=== PATIENT | female | born 1990 | race Native Hawaiian/Other Pacific Islander ===

== ENCOUNTER 2024-06-11 10:03 | Inpatient (IN) | payer MEDICAID, SELFPAY ==
[2024-06-11] VITALS (128 sets, daily range): BP systolic 108–143; BP diastolic 56–82; PULSE 67–108; RESP 16–99; TEMP 36.6–37.3; O2SAT 90–100; BMI 34.4
[2024-06-11] MEDS: RINGERS LACTATED 1000 ML 1,000 ML 125 ML IV (10:40)
[2024-06-11 11:03] LABS: Basophils % (Auto) 0 % (0-2.5); Eosinophils # (Auto) 0.4 Thou/mm3 (0.0-0.5); Eosinophils % (Auto) 3 % (0-10); Hematocrit 34.3 % (36.0-46.0); Hemoglobin 11.7 g/dL (12.0-16.0); Immature Granulocytes % (Auto) 0 % (0-0); Immature Granulocytes Auto 0.05 Thou/mm3 (0.00-0.00); Lymphocytes # (Auto) 2.7 Thou/mm3 (1.0-4.8); Lymphocytes % (Auto) 20 % (10-50); Mean Corpuscular HGB Conc 34.1 g/dl (31.0-37.0); Mean Corpuscular Hemoglobin 27.7 pg (25.0-35.0); Mean Corpuscular Volume 81 fL (80-100); Monocytes # (Auto) 0.6 Thou/mm3 (0.0-0.8); Monocytes % (Auto) 4 % (0-12); Neutrophils # (Auto) 9.6 Thou/mm3 (1.8-7.7); Neutrophils % (Auto) 72 % (37-80); Nucleated Red Blood Cell % 0 /100 WBC (0); Platelet Count 244 Thou/mm3 (140-440); Red Blood Count 4.22 Miln/mm3 (4.00-5.20); White Blood Count 13.3 Thou/mm3 (3.6-11.0)
[2024-06-11 15:15] LABS: Syphilis Reactive (Nonreactive)
[2024-06-11 15:16] LABS: MHATP/TP-PA* See Sep Rpt
--- NOTE | 2024-06-11 15:16 | ESHP_ITS ---
Documentation for date of: 06/11/24 OB Labor/Induct. HPI History of Present Illness Chief complaint: painful regular ctx : 5 Para: 4 Term pregnancies: 4 pregnancies: 0 Living children: 4 History of Abortions: Spontaneous and Elective: 0 History of Vaginal deliveries: 4 History of sections: No History of : No Date of last menstrual period: 09/20/23 JACKELYN: 06/26/24 Gestational Age (weeks): 37 Gestational Age (days): 6 Gestational age based on last menstrual period: 37 History of present illness: Patient presents with regular/painful ctx. No LOF, no vaginal bleeding. Feels normal movement. Comments: G1: 08/31/12, 40wk 7lb0oz G2: 08/02/13, 40wk 6lb0oz G3: 12/31/14, 40wk 7lb0oz G4: 06/23/21, 40wk 6lb0oz History of Present Dating criteria: LMP confirmed by 2nd trimester US Adequate Care: No Obstetrical complications: other (RPR reactive titer 1:1, TP+. Treated with bicillin 03/06/24. Repeat RPR titer 1:1 on 06/05/24. Partner not yet treated, but endorses no sexual activity since her dx. AMA. Starting BMI 31. Insufficient PNC.) Labs Labs: Negative: Hepatitis B, HIV, Chlamydia, Gonorrhea and Group Beta Strep Review of Systems Review of Systems Narrative Review of Systems: Review of Systems Systems Reviewed: All systems reviewed, normal except as documented Constitutional Constitutional: Denies body ache(s), Denies chills, Denies fever(s) and Denies headache(s) ENT Ears, Nose, Mouth, and Throat: Denies headache(s) and Denies vertigo Cardiovascular Cardiovascular: Denies chest pain, Denies palpitations, Denies dyspnea and Denies syncope Respiratory Respiratory: Denies cough, Denies dyspnea Gastrointestinal Gastrointestinal: Denies nausea and Denies vomiting Neurologic Neurologic: Denies convulsions, Denies headache(s), Denies other visual disturbances, Denies syncope and Denies vertigo Past Medical History Surgical History SURGICAL: Negative Section OTHER SURGICAL HX: denies Social History SOCIAL: No tobacco, drug use or ETOH Past Medical History Comments PMH COMMENT: Starting BMI 31 Positive syphilis testing in , treated Meds Home Medications and Allergies Allergies Allergy/AdvReac Type Severity Reaction Status Date / Time No Known Allergies Allergy Verified 06/11/24 10:37 OB Exam Physical Exam Vital signs: Temp Pulse Resp BP Pulse Ox 99.1 F 84 18 108/56 L 99 06/11/24 10:09 06/11/24 14:53 06/11/24 10:07 06/11/24 14:53 06/11/24 15:12 Narrative: General: well developed, well nourished, no acute distress, conversant Cardiac: normal heart rate Lungs: breathing without distress Abdomen: soft, gravid, non-tender, no rebound or guarding Extremities: no pain with palpation of calves Detailed Labor and Delivery Exam Dilation (cm): 4 Effacement (%): 75 Cervix position: mid station: -2 Consistency: soft Presentation: Vertex Membranes: intact Baseline heart rate: 120 monitor accelerations: 15x15 monitor decelerations: Variable intermediate accountant variability: Moderate (11-25) Contraction frequency (min): q3-5min OB Results Labs 06/11/24 10:35 Labs: Short CBC 06/11/24 Range/Units 10:35 WBC 13.3 H (3.6-11.0) Thou/mm3 Hgb 11.7 L (12.0-16.0) g/dL Hct 34.3 L (36.0-46.0) % Plt Count 244 (140-440) Thou/mm3 OB Assessment & Plan Assessment and Plan (1) Active labor at term: Status: Acute Assessment and plan: Patient is a 33yo with SIUP at 37+6wk presenting in active labor. Regular/painful contractions, SCE: 75/-2, intact. Vitals wnl, benign exam. Reassuring assessment, Cat I-II for early vs variable decels. PMhx/ complicated by: -RPR reactive titer 1:1, TP+. Treated with bicillin 03/06/24. Repeat RPR titer 1:1 on 06/05/24. Partner not yet treated, but endorses no sexual activity since her dx. -AMA. -Starting BMI 31. -Insufficient PNC Plan: -Admit to L&D -Establish IV, routine labs to include syphilis testing -CEFM -Clear liquid diet -Medical Billing Specialist/consent re: -GBS status: negative -Anticipate -Safe to proceed (2) Syphilis affecting : Status: Acute (3) Advanced maternal age (AMA) in : Status: Acute (4) complicated by obesity: Status: Acute (5) Insufficient antepartum care: Status: Acute (2) Syphilis affecting Qualifiers: Trimester: third trimester Qualified Code(s): O98.113 - Syphilis complicating , third trimester (4) complicated by obesity Qualifiers: Trimester: third trimester Obesity type affecting : other obesity due to excess calories Qualified Code(s): O99.213 - Obesity complicating , third trimester; E66.09 - Other obesity due to excess calories
[2024-06-11] MEDS: METHYLERGONOVINE INJ 0.2 MG/ML VIAL IM (17:05)
[2024-06-11] MEDS: OXYTOCIN in NS 20 units 20 UNIT/1,000 ML BAG 125 UNIT IV (17:05)
[2024-06-11] MEDS: LIDOCAINE HCL 1% 20 ML VIAL INFL (17:11)
[2024-06-11] MEDS: MISOPROSTOL 200 mCg TABLET 800 MCG PR (17:16)
[2024-06-11] MEDS: BENZO/LANO/ALOE (Dermoplast) 60 GM CAN 1 SPRAY TOP (17:16)
--- NOTE | 2024-06-11 17:30 | PD.LDDELS ---
Data ([facility]) Data Hx Section: No Labs: Positive: RPR : 6 Para: 4 Term: 4 : 0 Livin : 0 Delivery Data ([facility]) Labor Data ROM Date: 06/11/24 ROM Time: 11:50 Rupture Type: SROM Amniotic Fluid: Clear Delivery Data Labor Onset Stage 1 Date: 06/11/24 Labor Onset Stage 1 Time: 10:17 Labor Onset Stage 2 Date: 06/11/24 Labor Onset Stage 2 Time: 16:57 Delivery Date: 06/11/24 Delivery Time: 17:00 Placenta Delivery Date: 06/11/24 Placenta Delivery Time: 17:10 Delivered by: Pinky Martinez Delivery nurse: Xenia Luna Other staff at delivery: Nursery Nurse Other staff at delivery: Teri Iniguez Delivery Method Delivery: Vaginal Delivery Type: Spontaneous Anesthesia Type Primary Anesthesia: None EBL Estimated blood loss (ml): 300 Umbilical Cord Nuchal Cord: x1 Additional Procedures Patient is a 33yo [id number] s/p uncomplicated at 37+6wk after presenting in active labor, delivering at 1700 on 06/11/2024. On presentation, SCE was 4cm. She progressed without pitocin augmentation to C/C/0 at which point she began pushing. She did not desire an epidural. With good maternal pushing efforts, infant's head delivered OA and restituted MANGO. Tight nuchal cord present, delivered through. Left anterior shoulder delivered easily followed by posterior shoulder and corpus. Nuchal cord reduced. Infant had spontaneous cry and was vigorous. Terminal meconium noted. Apgars 6/9. Infant placed on maternal abdomen where nose/mouth were suctioned and dried/stimulated. After approximately 1 minute, cord was clamped x2 and cut by patient's lamlep-cu-gph. Cord blood collected for typing. Uterus was deviated to the right, so in-and-out catheterization was performed with 300ml clear yellow urine emptied from bladder. With fundal massage and cord traction, placenta delivered spontaneously and intact with 3 vessel centrally inserted cord. Bimanual massage performed and IV pitocin given per protocol with fundus then firm at u-2cm and hemostasis noted. 0.2mg IM methergine also given. Inspection of perineum and vagina revealed a small 2nd degree midline perineal laceration which was repaired in routine fashion with 3-0 vicryl after anesthetizing with 1% lidocaine- total reapproximation and hemostasis achieved. 800mcg cytotec placed [place] for ppx against future bleeding. All counts correct x2. Mom and were doing well when I left the room. Pinky Martinez MD Complications Complications: none Data ([facility]) Data Infant Gender: Male Infant Weight Grams: 3590 1 Minute Total: 6 5 Minute Total: 9
[2024-06-11] MEDS: IBUPROFEN TAB 400 MG TABLET 800 MG PO (17:40)
[2024-06-11 18:41] LABS: Amphetamine/Metham Scrn,Ur OB Negative (Negative); Benzoylecgonine Screen, Ur OB Negative (Negative); Opiate Screen,Urine OB Negative (Negative); THC Screen,Urine OB Negative (Negative)
[2024-06-11] MEDS: DOCUSATE SOD 100 MG CAPSULE PO (23:00)
[2024-06-12 00:26] VITALS: BP 103/68; PULSE 70; RESP 20; TEMP 36.6; O2SAT 98
[2024-06-12] MEDS: IBUPROFEN TAB 400 MG TABLET 800 MG PO (00:57)
--- NOTE | 2024-06-12 03:25 | PC.NURSE ---
0026 Patient will be using her sister in law as her interpreter deaf, consent was signed. No [place] interpreters were available in this patients language at this time.
[2024-06-12 05:07] VITALS: BP 119/64; PULSE 72; RESP 24; TEMP 36.4; O2SAT 100
[2024-06-12 06:19] LABS: Basophils # (Auto) 0.1 Thou/mm3 (0.0-0.2); Basophils % (Auto) 0 % (0-2.5); Eosinophils # (Auto) 0.2 Thou/mm3 (0.0-0.5); Eosinophils % (Auto) 1 % (0-10); Hematocrit 31.4 % (36.0-46.0); Hemoglobin 10.7 g/dL (12.0-16.0); Immature Granulocytes % (Auto) 0 % (0-0); Immature Granulocytes Auto 0.08 Thou/mm3 (0.00-0.00); Lymphocytes # (Auto) 3.1 Thou/mm3 (1.0-4.8); Lymphocytes % (Auto) 17 % (10-50); Mean Corpuscular HGB Conc 34.1 g/dl (31.0-37.0); Mean Corpuscular Hemoglobin 28.5 pg (25.0-35.0); Mean Corpuscular Volume 84 fL (80-100); Monocytes # (Auto) 1.1 Thou/mm3 (0.0-0.8); Monocytes % (Auto) 6 % (0-12); Neutrophils # (Auto) 13.7 Thou/mm3 (1.8-7.7); Neutrophils % (Auto) 75 % (37-80); Nucleated Red Blood Cell % 0 /100 WBC (0); Platelet Count 212 Thou/mm3 (140-440); RDW Standard Deviation 37.7 fL (36.4-46.3); Red Blood Count 3.76 Miln/mm3 (4.00-5.20); White Blood Count 18.2 Thou/mm3 (3.6-11.0)
[2024-06-12 08:00] VITALS: BP 120/80; PULSE 67; RESP 18; TEMP 36.6; O2SAT 98
[2024-06-12] MEDS: DOCUSATE SOD 100 MG CAPSULE PO (08:20)
--- NOTE | 2024-06-12 10:00 | PC.NURSE ---
Patient cleared by Larisa in director social welfare
[2024-06-12 11:30] VITALS: BP 115/77; PULSE 72; RESP 18; TEMP 36.8; O2SAT 98
--- NOTE | 2024-06-12 12:05 | PD.LDDS ---
DS: Providers Provider Date of admission: 06/11/24 12:00 Primary care physician: Physician No Primary/Family Admitting Provider: Pinky Martinez MD Attending Provider on Admission: Pinky Martinez MD Attending Provider on DC: Pinky Martinez MD Discharging Provider: Pinky Martinez MD DS: Diagnosis Discharge Diagnosis (1) Active labor at term: Status: Acute (2) Syphilis affecting : Status: Acute (3) Insufficient antepartum care: Status: Acute (4) complicated by obesity: Status: Acute (5) Advanced maternal age (AMA) in : Status: Acute Problem List Completed Was Problem List Reviewed/Reconciled?: Yes Summary/Hosp Course Brief History: Patient is a 33yo [id number] s/p uncomplicated at 37+6wk after presenting in active labor, delivering at 1700 on 06/11/2024. She has had an uncomplicated course, meeting all milestones and feels ready for discharge home. She is ambulating without lightheadedness, tolerating regular diet no n/v, spontaneously voiding without issue. She has no chest pain or shortness of breath. No fevers or chills. Minimal, appropriate discomfort. Vitals normal, benign exam. Hemodynamically stable with no evidence of infection. PP Hgb 10.7. We discussed the importance of abstaining from intercourse until partner is fully treated for syphilis. We discussed the dangers of syphilis if left untreated and why it is extremely important for partner to be treated. Time Spent with Patient Time attestation: Total time spent providing and/or coordinating discharge services: Exam Vital Signs Temp Pulse Resp BP Pulse Ox O2 Del Method 98.3 F 72 18 115/77 98 Room Air 06/12/24 11:30 06/12/24 11:30 06/12/24 11:30 06/12/24 11:30 06/12/24 11:30 06/12/24 11:30 Narrative Exam General: well developed, well nourished, no acute distress, conversant Cardiac: normal heart rate Lungs: breathing without distress Abdomen: soft, post-gravid, non-tender, no rebound or guarding, Fundus firm at u-3cm. Extremities: no pain with palpation of calves, trace edema of BLE Discharge Plan Plan Patient Disposition: HOME (Self Care) Patient condition on transfer: Stable Prescriptions/Referrals Prescriptions/Med Rec: New docusate sodium 100 mg Capsule 100 mg PO BID 10 Days Qty: 20 0RF ibuprofen 800 mg tablet 800 mg PO Q8H PRN (Reason: See Comments) 10 Days Qty: 30 0RF Referrals: No Primary/Family,Physician [Primary Care Provider] - Patient/Caregiver Discharge Instructions Discharge Activity: activity as tolerated and other Other Discharge Activity Instructions:: vaginal rest and no heavy lifting more than 10 pounds for 6 weeks. NO SEX UNTIL PARTNER IS FULLY TREATED FOR SYPHILIS which we discussed. Other Discharge Diet Instructions: Regular diet Education Materials: After a Vaginal Print Language: Urugu[place] Activity Restrictions/Additional Instructions: follow up in 4 weeks for visit, call clinic for appointment Stand Alone Forms: [facility]le Award Info., Patient Portal Info Letter Discharge Order Discharge Orders: Discharge (Routine); Ordered 06/12/24 Ordered By: Pinky Martinez Planned Discharge Date 06/12/24 (2) Syphilis affecting Qualifiers: Trimester: third trimester Qualified Code(s): O98.113 - Syphilis complicating , third trimester (4) complicated by obesity Qualifiers: Trimester: third trimester Obesity type affecting : other obesity due to excess calories Qualified Code(s): O99.213 - Obesity complicating , third trimester; E66.09 - Other obesity due to excess calories
--- NOTE | 2024-06-12 13:47 | PC.SS ---
SS conducted bedside contact with the patient to address nursing referral indicating patient possessed late to care at 24 weeks. SS introduced self and role. Patient?s sister, Ashtyn, was at bedside.? Patient does not speak Frisian. Patient?s sister utilized to interpret for patient.? Patient agreed. SS discussed basis for referral.? Patient confirmed late to care. Patient states she arrived her in the [place] in September of 2023 from the [facility].? She had no access to insurance coverage upon [place] the [place].? Upon obtaining insurance coverage patient made OB appointment with CN.? This barrier was the basis of patient?s late to care. ?She states she has five other children living with her and spouse at home.? Ages of children are: 11, 10, 9, 4, 3, and NB. OB services were provided by [employer], [facility].? Patient had baby boy, Yamil Fairbanks.? Patient delivered baby natural. FOB is involved and resides with patient. FOB is Chucky Fairbanks.? Patient is aligned with [facility], [facility], and [facility].? Patient has access to a car seat. Patient has access to appropriate supplies and equipment. FOB will provide transportation. Patient denies any history of alcohol/drug abuse, domestic violence or mental illness.? Patient denies CWS intervention. fast food services manager provided resources to include:? [facility], Warm Line and community numbers. No further intervention required at this time.? fast food services manager will be available to address any further concerns.? SS updated bedside nurse.
[2024-06-12 15:30] VITALS: BP 124/79; PULSE 67; RESP 17; TEMP 36.8; O2SAT 100
== END 2024-06-12 17:37 | disposition home or self-care (01) | DRG 560 ==
LOC: S4SX 18:18 → S4NX 22:17
PROVIDERS: Admitting Provider Obstetrics & Gynecology; Visit Provider Obstetrics & Gynecology
DX: O98.12 Syphilis complicating childbirth (principal); Z37.0 Single live birth; Z3A.37 37 weeks gestation of pregnancy; O99.214 Obesity complicating childbirth; O69.1XX0 Labor and delivery complicated by cord around neck, with compression, not applicable or unspecified; O77.0 Labor and delivery complicated by meconium in amniotic fluid; O70.1 Second degree perineal laceration during delivery
CPT/HCPCS: 36415; 59409; 80307; 85025; 86780; 86850; 86900; 86901; 94762; J2210; J2590; J3490; J7120; S0191; A9270